=== PATIENT | male | born 1940 | race Asian ===

== ENCOUNTER → 2020-01-07 | Outpatient (CLI) | payer MEDICARE, OTHER ==
[~2020-01-07] MED LIST: FENO160T41 PO; METF-960 PO
== END | disposition home or self-care (01) ==
LOC: RADPV 08:13
PROVIDERS: ATTEND Internal Medicine
DX: N28.1 Cyst of kidney, acquired (principal); R79.89 Other specified abnormal findings of blood chemistry
CPT/HCPCS: 76700